=== PATIENT | male | born 1995 | race Caucasian/White ===

== ENCOUNTER 2016-11-02 07:21 | Inpatient (IN) | payer BC, OTHER ==
[~2016-11-02] VITALS: Ht 190.5 cm; Wt 86.2 kg
--- NOTE | 2016-11-02 10:45 | NUR ---
PREADMISSION NOTE Preadmission assessment done in Intake for 21 year old male, admission for substance use. Alert and oriented, no visible sweating or tremors, gait stable. Vital signs blood pressure 156/103, pulse 74, oxygen saturation 99 percent, temp 96.3. NKA other than "cats", No known food allergies. Denies history of seizures. No home medications. History of asthma and HTN. SUBSTANCE USE HISTORY 1. Heroin, 1-2 grams per day, length of use 5 months, date of last use 10/31/16, amount used one fifth of a gram. 2. Marijuana, inhalation, 2 grams per week, length of time 10 years, last use 1 week ago, amount 1 gram. Denies use of other substances or prescription medications. Denies history of Hep C or HIV. RN to complete admission when pt arrives in unit.
--- NOTE | 2016-11-02 11:30 | NUR ---
ADMISSION NOTE 21 year old male admitted heroin substance use. Alert and oriented, no visible sweating or tremors, gait stable. NKA , No known food allergies. Denies history of seizures. No home medications. History of asthma and HTN. Skin and body check completed, skin intact. Admitted to room 316. Vital signs on admission with blood pressure 156/103, pulse 74, oxygen saturation 99 percent, temp 96.3. Dr. Felix notified of elevated blood pressure. Pt is primary source of information, speech coherent. Pt denies being on home medication. Pt refuses PNA vaccine stating he is afraid of needles. Pt is full code, regular diet, on fall precautions. States he lives with his mother. His motivation to get sober is to be able to be in his sons life. Smokes one pack of cigarettes per day. Reports cervical and low back pain, nasal drainage, chills. Denies history of Hep C or HIV. REHAB HISTORY States he was in inpatient detox about 1.5 to 2 years ago but did not stay sober as he did not go on for treatment after discharge. He states he wants to go into a treatment center upon discharge. SUBSTANCE USE HISTORY 1. Heroin, 1-2 grams per day, length of use 5 months, date of last use 10/31/16, amount used one fifth of a gram. 2. Marijuana, inhalation, 2 grams per week, length of time 10 years, last use 1 week ago, amount 1 gram. Unit orientation given, bed in low position and locked, side rails up x 2, call light within reach. Will continued to monitor.
[2016-11-02 12:46] VITALS: BP 116/83
[2016-11-02 12:49] LABS: *AMPHETAMINE, URINE NEGATIVE (NEGATIVE); *BARBITURATE, URINE NEGATIVE (NEGATIVE); *CANNABINOID, URINE NEGATIVE (NEGATIVE); *COCCAINE, URINE NEGATIVE (NEGATIVE); *OPIATE, URINE NEGATIVE (NEGATIVE); *PHENCYCLIDINE SCREEN,URINE NEGATIVE (NEGATIVE)
[2016-11-02 16:00] VITALS: BP 112/63
[2016-11-02 16:16] LABS: BASOPHILS % (AUTO) 0.7 % (0.0-2.0); EOSINOPHILS # (AUTO) 0.1 K/uL (0.0-0.7); EOSINOPHILS % (AUTO) 2.2 % (0.0-7.0); HEMATOCRIT 46.8 % (40-50); HEMOGLOBIN 15.8 G/DL (14.0-18.0); LYMPHOCYTES # (AUTO) 1.6 K/UL (0.8-4.8); LYMPHOCYTES % (AUTO) 24.9 % (20.5-74.5); MEAN CORPUSCULAR HEMOGLOBIN 28.2 UUG (27.0-31.0); MEAN CORPUSCULAR HGB CONC 34 g/dL (32.0-37.0); MEAN CORPUSCULAR VOLUME 83.9 FL (82.0-92.0); MONOCYTES # (AUTO) 0.7 K/UL (0.1-1.30); MONOCYTES % (AUTO) 11.3 % (0-11); NEUTROPHILS % (AUTO) 60.9 % (31.5-64.5); PLATELET COUNT (AUTO) 241 K/UL (150-450); RED BLOOD CELL COUNT(AUTO) 5.58 MIL/UL (4.7-6.1); WHITE BLOOD COUNT (AUTO) 6.4 K/UL (4.0-11.2)
[2016-11-02 16:20] LABS: ALANINE AMINOTRANSFERASE 20 U/L (16-63); ALKALINE PHOSPHATASE 62 U/L (50-136); ASPARTATE AMINOTRANSFERASE 15 U/L (15-37); BILIRUBIN,TOTAL 0.4 mg/dL (0.2-1.0); CARBON DIOXIDE 30 mmol/L (21-32); CHLORIDE 104 mmol/L (98-107); CREATININE 1.4 mg/dL (0.6-1.3); GLUCOSE 109 mg/dL (74-106); POTASSIUM 4.1 mmol/L (3.5-5.1); TOTAL PROTEIN, SERUM 7.5 g/dL (6.4-8.2); UREA NITROGEN, BLOOD 10 mg/dL (7-18)
[2016-11-02 16:22] LABS: ETHANOL < 3 MG/DL (0-0)
--- NOTE | 2016-11-02 19:09 | NUR ---
END OF SHIFT NOTE Pt received Subutex 4 mg at 1300 scheduled dose. COW score 4 at 1650. Continues on Subutex taper. Pt continues to have chills, appears drowsy, has stuffy nose. No tremors, adequate appetite. Report given to night RN. Call light in reach, bed in low position and locked, fall precautions in place, safety measures in place.
[2016-11-02 20:00] VITALS: BP 148/75
--- NOTE | 2016-11-02 20:00 | NUR ---
START OF SHIFT NOTE RECEIVED REPORT FROM DAY SHIFT NURSE. PATIENT IS A 21 YEAR OLD MALE, ADMITTED FOR OPIATE DEPENDENCE. PATIENT IS ON HIS FIRST DAY OF HIS 5 DAY SUBUTEX TAPER. PATIENT REPORTS SEIZURE HISTORY. UPON ADMISSION, PATIENT IS USING HEROIN 1-2 GRAMS DAILY FOR 5 MONTHS AND MARIJUANA 2 GRAMS PER WEEK FOR 10 YEARS. SKIN INTACT. PATIENT DID NOT REQUIRE ANY PRN MEDICATION. LAST COWS 4. PATIENT IN HIS ROOM, RESTING. PATIENT REPORTS ANXIETY, CHILLS, COLD SWEATS NO N/V, ABDOMINAL CRAMPING AND NECK/BACK PAIN 07/22. ON FALL/SEIZURE PRECAUTION. SAFETY MEASURES IN PLACE. CALL LIGHT IN REACH. WILL CONTINUE TO MONITOR.
--- NOTE | 2016-11-02 21:11 | NUR ---
PRN ROBAXIN AND BENTYL ADMINISTRATION PATIENT C/O NECK/BACK PAIN AND ABDOMINAL CRAMPING. PRN ROBAXIN AND BENTYL GIVEN. WILL MONITOR FOR EFFECTIVENESS
--- NOTE | 2016-11-02 22:11 | NUR ---
PRN ELVIRA RE-ASSESSMENT PATIENT STATES GIOVANY AND KEEGAN IS HELPFUL. HE FEELS MUCH BETTER . NO PAIN AT THIS TIME
[2016-11-03] VITALS (7 sets, daily range): BP systolic 104–132; BP diastolic 58–84
--- NOTE | 2016-11-03 07:30 | NUR ---
END OF SHIFT NOTE PATIENT IS A 21 YEAR OLD MALE, ADMITTED FOR OPIATE DEPENDENCE. PATIENT IS ON 5 DAY SUBUTEX TAPER, TOLERATED WELL AND NO ADVERSE REACTION. PATIENT REPORTS SEIZURE HISTORY. SKIN INTACT. PATIENT REPORTED ANXIETY, CHILLS, COLD SWEATS NO N/V, ABDOMINAL CRAMPING AND NECK/BACK PAIN 07/22. PRN BENTYL AND ROBAXIN GIVEN. ON FALL/SEIZURE PRECAUTION. SAFETY MEASURES IN PLACE. CALL LIGHT IN REACH. WILL CONTINUE TO MONITOR. SLEPT 8 HOURS. FLUID INTAKE 1,000 ML. VOIDED X 1. BM X 1. LAST COWS 2.
--- NOTE | 2016-11-03 08:00 | NUR ---
START OF SHIFT NOTE 21 year old male admitted for Heroin substance abuse. Hx of asthma and HTN. On 5 day Subutex taper started 11/02/16. Received report from night RN. Last COW 2. Received PRN Bentyl and Robaxin last night. 0800 patient rounds, Pt alert and oriented. No nausea or tremors or chills, vital signs stable. Bed in low position and locked, side rails up x 2, call taylor within reach. Safety measures in place. Will continue to monitor.
[2016-11-03 08:10] LABS: HEPATITIS B SURFACE AG Negative (Negative)
--- NOTE | 2016-11-03 13:54 | NUR ---
PRN MEDICATION ADMINISTRATION Pt complaint of joint and muscle pain 6/10 and chills. Given Motrin and Robaxin.
--- NOTE | 2016-11-03 14:54 | NUR ---
PRN REASSESSMENT Joint and muscle aches now 3/, denies chills.
--- NOTE | 2016-11-03 19:00 | NUR ---
END OF SHIFT NOTE 21 year old male admitted for Heroin substance abuse. Hx of asthma and HTN. On 5 day Subutex taper started 11/02/16. WILLIS 9 at 1324, received additional scheduled subutex dose per Dr. Felix. WILLIS 4 at 1530, received scheduled dose of subutex. Report given to night RN. Bed in low position and locked, side rails up x 2, call taylor within reach. Safety measures in place.
--- NOTE | 2016-11-03 19:00 | NUR ---
START OF SHIFT NOTE: Patient is 21 year old male admitted to [facility] on 11/02/2016 for Opioid and Marijuana dependence continue 5 Day Subutex Taper since 11/02/2016. Patient tolerated well without ASE. Patient remains compliant with treatment, medications, and Diet regime. Patient reports NKA, is on Full Code Regular Diet, is on Fall and Seizures Precautions. Patient reports PMH: Asthma, HTN. Patient denies History of Seizures. Patient reports Substance use: 1. "Heroin via IV 1 - 2 grams every day last 5 months". "Last used 1/5 gram on 10/31/2016". 2. "Marijuana 2 gram every day since 2006". "Last used 1 gram one week ago". Patient reports recent hospitalization/Treatment History: "2 years ago was in inpatient detox for 5-6 days". Patient can't recalled place. Upon endorsement by day shift nurse, patient is alert and oriented x4. VS WNL. Patient reports pain now: "0/10". COWS 5. The patient reported the following symptoms of withdrawal: anxiety, agitation, nervousness, stomach cramps, diaphoresis, restless legs, and fatigue. Patient denies SI/HI. Upon initial assessment, patient's Respirations unlabored and even. Patient denies SOB and chest pain. Lungs Sounds are clear bilaterally. Bowel Sounds active in all x4 quadrants. Abdomen is soft and non-tender. PERRLA, brisk capillary refill, timber sizer equal and strong. Skin is intact, warm and dry to touch. Patient has multiple lesions around chest area due to skin picking. Encourage fluids as tolerated. Encourage to attend activities groups. All needs met. PRN Robaxin 750 mg 1 tab PO for myalgia and PRN Motrin 600 mg 1 tab PO for pain administrated to patient during day shift were effective. Safety measures on place. Call light within reach, bed in lowest position and locked, padded rails up bilaterally rails up bilaterally. Patient endorsed by day shift nurse. Report received. Will continue to monitor closely.
--- NOTE | 2016-11-03 21:58 | NUR ---
PRN BENADRYL 50 MG 1 CAP PO ADMINISTRATION Patient c/o insomnia. PRN Benadryl 50 mg 1 capsule PO administrated with full glass of water as ordered. Patient tolerated well. All needs met. Safety measures on place. Call light within reach, bed in lowest position and locked, padded rails up bilaterally rails up bilaterally. Will continue to monitor closely.
--- NOTE | 2016-11-03 22:58 | NUR ---
RE-ASSESSMENT Patient is sleeping. Respirations even and unlabored. RR:14. PRN Benadryl 50 mg 1 capsule PO administrated to patient @ 2158 for insomnia was effective. All needs met. Safety measures on place. Call light within reach, bed in lowest position and locked, padded rails up bilaterally rails up bilaterally. Will continue to monitor closely.
[2016-11-04] VITALS: BP 113/71
[2016-11-04 04:00] VITALS: BP 117/61
--- NOTE | 2016-11-04 07:14 | NUR ---
END OF SHIFT NOTE: Patient is 21 year old male admitted to [facility] on 11/02/2016 for Opioid and Marijuana dependence, continue 5 Day Subutex Taper since 11/03/2016. Patient tolerated well without ASE. Patient remains compliant with treatment, medications, and Diet regime. Patient reports NKA, is on Full Code Regular Diet, is on Fall and Seizures Precautions. PMH: Anxiety; History of withdrawal-induced seizures and accidental intoxication induced overdose requiring resuscitation; Chronic tobacco use; Opioid use disorder; Sedative hypnotic use disorder. Patient reports Substance use: 1. "Heroin via smoke inhalation 1 - 2 grams every day last 5 months". "Last used 1/5 gram on 10/31/2016". 2. "Marijuana 2 gram every day since 2006". "Last used 1 gram one week ago". Last COWS 5 @0400. The patient reported the following symptoms of withdrawal: anxiety, agitation, nervousness, nose running, diaphoresis, restless legs, and fatigue. VS @ 0400: T: 97.9, BP: 117/61, HR:68, RR:18, RA O2Sat: 100%. Pain level: "0/10". Respirations are unlabored and even. Skin is warm and dry to touch. Skin is warm and dry to touch. Patient has multiple lesions around chest area due to skin picking. Encouraged fluid intake as tolerated. PRN Benadryl 50 mg 1 cap PO administrated @2158 for insomnia was effective. Patient slept 7 hours, intake 2,598 ml, voided x5. All needs met. Safety measures on place. Call light within reach, bed in lowest position and locked, padded rails up bilaterally. Patient endorsed to day shift nurse.
--- NOTE | 2016-11-04 07:41 | NUR ---
START OF SHIFT NOTE: Received report from slot shift manager nurse. Patient is 21 year old male admitted to [facility] on 11/02/2016 for Opioid and Marijuana dependence. Pt is on a 5 day Subutex taper. Tolerating well. Pt is alert and oriented X4. Color good, skin warm and dry. Respirations even and unlabored. Resting in bed. Safety precautions observed. Call light within reach. Will continue to monitor.
[2016-11-04 08:28] VITALS: BP 117/61
--- NOTE | 2016-11-04 09:38 | NUR ---
VSS COWS 9 c/o chills, diffuse body aches and anxiety
--- NOTE | 2016-11-04 09:45 | NUR ---
MOM 30cc po prn given fro constipation
[2016-11-04 13:26] VITALS: BP 112/70
--- NOTE | 2016-11-04 15:00 | NUR ---
VSS COWS 10 c/o muscle aches, anxiety and chills. Toradol 30mg IM prn given. Miralax given prn. No results from [facility].
[2016-11-04 16:11] VITALS: BP 126/74
--- NOTE | 2016-11-04 19:13 | NUR ---
START OF SHIFT NOTE: Patient is 21 year old male admitted to [facility] on 11/02/2016 for Opioid and Marijuana dependence continue 5 Day Subutex Taper since 11/02/2016. Patient tolerated well without ASE. Patient remains compliant with treatment, medications, and Diet regime. Patient reports NKA, is on Full Code Regular Diet, is on Fall and Seizures Precautions. Patient reports PMH: Asthma, HTN. Patient denies History of Seizures. Patient reports Substance use: 1. "Heroin via IV 1 - 2 grams every day last 5 months". "Last used 1/5 gram on 10/31/2016". 2. "Marijuana 2 gram every day since 2006". "Last used 1 gram one week ago". Patient reports recent hospitalization/Treatment History: "2 years ago was in inpatient detox for 5-6 days". Patient can't recalled place. Upon endorsement by day shift nurse, patient is alert and oriented x4. VS WNL. Patient reports pain now: "0/10". COWS 7. The patient reported the following symptoms of withdrawal: anxiety, agitation, nervousness, diaphoresis, restless legs, and fatigue. Patient denies SI/HI. Upon initial assessment, patient's Respirations unlabored and even. Patient denies SOB and chest pain. Lungs Sounds are clear bilaterally. Bowel Sounds active in all x4 quadrants. Abdomen is soft and non-tender. PERRLA, brisk capillary refill, mail agent equal and strong. Skin is intact, warm and dry to touch. Patient has multiple lesions around chest area due to skin picking. Encourage fluids as tolerated. Encourage to attend activities groups. All needs met. Safety measures on place. Call light within reach, bed in lowest position and locked, padded rails up bilaterally rails up bilaterally. Patient endorsed by day shift nurse. Report received. Will continue to monitor closely.
--- NOTE | 2016-11-04 19:13 | NUR ---
END OF SHIFT NOTE: Report given to it field technician nurse . Patient is 21 year old male admitted to [facility] on 11/02/2016 for Opioid and Marijuana dependence. Pt is on a 5 day Subutex taper. Tolerating well. Pt is alert and oriented X4. Color good, skin warm and dry. Respirations even and unlabored. Vital signs have remained stable throughout shift. MOM 30cc po prn given for constipation @ 0940. Toradol 30mg IM prn given. Miralax given prn @1500. No results from MOM. Last COWS 10 @ 1500. Safety precautions observed. Call light within reach.
[2016-11-04 20:00] VITALS: BP 138/70
--- NOTE | 2016-11-04 20:57 | NUR ---
PRN TRAZODONE 50 MG 1 TAB PO AND PRN TORADOL INJ 30 MG/1ML IM ADMINISTRATION Patient c/o insomnia and generalized body aches "910", and asked aid. PRN Trazodone 50 mg 1 tab PO for insomnia with full glass of water, and PRN Toradol Inj. 30 MG/1ML IM to Right Upper Deltoid Muscle for pain administrated as ordered. All needs met. Safety measures on place. All needs met. Call light within reach, bed in lowest position and locked, padded rails up bilaterally. Will continue to monitor closely.
--- NOTE | 2016-11-04 21:57 | NUR ---
RE ASSESSMENT Patient is sleeping. RR 15. PRN Trazodone 50 mg 1 tab PO for insomnia and PRN Toradol Inj. 30 MG/1ML IM for pain were effective. Safety measures on place. Call light within reach, bed in lowest position and locked, padded rails up bilaterally rails up bilaterally. Will continue to monitor closely.
[2016-11-05] VITALS: BP 133/74
[2016-11-05 04:00] VITALS: BP 128/78
--- NOTE | 2016-11-05 06:50 | NUR ---
END OF SHIFT NOTE: Patient is 21 year old male admitted to [facility] on 11/02/2016 for Opioid and Marijuana dependence, continue 5 Day Subutex Taper since 11/03/2016. Patient tolerated well without ASE. Patient remains compliant with treatment, medications, and Diet regime. Patient reports NKA, is on Full Code Regular Diet, is on Fall and Seizures Precautions. PMH: Anxiety; History of withdrawal-induced seizures and accidental intoxication induced overdose requiring resuscitation; Chronic tobacco use; Opioid use disorder; Sedative hypnotic use disorder. Patient reports Substance use: "Heroin via smoke inhalation 1 - 2 grams every day last 5 months". "Last used 1/5 gram on 10/31/2016"; "Marijuana 2 gram every day since 2006". "Last used 1 gram one week ago". Last COWS 4 @0400. The patient reported the following symptoms of withdrawal: anxiety, agitation, nervousness, diaphoresis, restless legs, and fatigue. VS @ 0400: T: 98.3, BP: 128/78, HR: 75, RR:14, RA O2Sat: 100%. Pain level: "0/10". Respirations are unlabored and even. Skin is warm and dry to touch. Skin is warm and dry to touch. Patient has multiple lesions around chest area due to skin picking. Encouraged fluid intake as tolerated. PRN Trazodone 50 mg 1 tab PO for insomnia@2056 and PRN Toradol Inj. 30 MG/1ML IM for pain @2056were effective. Patient slept 8 hours, intake 1,710 ml, voided x4. All needs met. Safety measures on place. Call light within reach, bed in lowest position and locked, padded rails up bilaterally. Patient endorsed to day shift nurse.
--- NOTE | 2016-11-05 07:45 | NUR ---
START OF SHIFT NOTE Received report from night nurse, 21 year old male admitted for Opioid and Marijuana dependence. Pt is on a 5 day Subutex taper. Pt reported PMH of Asthma, HTN. Per endorsement received PRN Trazodone, Toradol effective per night nurse, last COWS-4, Slept for 8 hours. Pt received in bed awake, alert and oriented x4, Skin intact warm and dry to touch. Pt educated regarding plan of care for the day with good verbal understanding. Safety measures in place, call light kept with in reach, will continue to monitor.
[2016-11-05 08:00] VITALS: BP 103/65
[2016-11-05 08:16] LABS: CREATININE 1.2 mg/dL (0.6-1.3); POTASSIUM 4.6 mmol/L (3.5-5.1)
[2016-11-05 12:00] VITALS: BP 122/68
--- NOTE | 2016-11-05 14:25 | NUR ---
Therapist prompted client about group times. Client stated he will attend all groups today.
[2016-11-05 16:00] VITALS: BP 132/78
--- NOTE | 2016-11-05 18:31 | NUR ---
PRN ZOFRAN Pt reported nausea and emesis x1, PRN Zofran 4mg SL administered as ordered. Will cont to monitor for effectiveness.
--- NOTE | 2016-11-05 19:00 | NUR ---
ZOFRAN REASSESSMENT pt reported medication effective,no nausea no emesis reported by the pt.
--- NOTE | 2016-11-05 19:18 | NUR ---
START OF SHIFT NOTE: Patient is 21 year old male admitted to [facility] on 11/02/2016 for Opioid and Marijuana dependence, continue 5 Day Subutex Taper since 11/03/2016. Patient tolerated well without ASE. Patient remains compliant with treatment, medications, and diet regime. Patient reports NKA, is on Full Code Regular Diet, is on Fall and Seizures Precautions. PMH: Anxiety; History of withdrawal-induced seizures and accidental intoxication induced overdose requiring resuscitation; Chronic tobacco use; Opioid use disorder; Sedative hypnotic use disorder. Patient reports Substance use: Heroin via smoke inhalation 1 - 2 grams every day last 5 months. Last used 1/5 gram on 10/31/2016; Marijuana 2 gram every day since 2006. Last used 1 gram one week ago. Upon endorsement patient is in the room alert and oriented. X4. Patient recently used wheelchair for unsteady gait during day shift, but patient noted walking in the hallway with steady gait. COWS 9. The patient reported the following symptoms of withdrawal: anxiety, agitation, nervousness, diaphoresis, restless legs, and fatigue. VS: T: 98.4, BP: 140/75, HR: 79, RR:19, RA O2Sat: 99%. Pain level: "0/10". Respirations are unlabored and even. Skin is warm and dry to touch. Skin is warm and dry to touch. Patient denies SI/HI. Respirations unlabored and even. Patient denies SOB and chest pain. Lungs Sounds are clear bilaterally. Bowel Sounds active in all x4 quadrants. Abdomen is soft and non-tender. PERRLA, brisk capillary refill, store worker equal and strong. Skin is intact, warm and dry to touch. Encourage fluids as tolerated. Patient attended activities groups during day. All needs met. Safety measures on place. Call light within reach, bed in lowest position and locked, padded rails up bilaterally. Patient endorsed by day shift nurse. Report received. Will continue to monitor closely.
--- NOTE | 2016-11-05 19:18 | NUR ---
END OF SHIFT NOTE Pt presented with nausea x1 episode of emesis. Pt was given PRN Zofran 4 mg SL effective. Pt wanted to use the wheel chair because of unsteady gait, but pt noted walking in the hallway with steady gait. Vital sings WNL. Last COWS was 8. Encourage Po fluids as tolerated. All needs attended. Pt endorsed to night nurse in stable condition.
[2016-11-05 20:00] VITALS: BP 140/75
--- NOTE | 2016-11-05 20:52 | NUR ---
PRN TRAZODONE 50 MG 1 TAB PO ADMINISTRATION Patient c/o insomnia and asked aid. PRN Trazodone 50 mg 1 tab PO administrated as ordered with full glass of water. All needs met. Safety measures on place. Call light within reach, bed in lowest position and locked, padded rails up bilaterally rails up bilaterally. Patient endorsed by day shift nurse. Will continue to monitor closely.
--- NOTE | 2016-11-05 21:52 | NUR ---
RE ASSESSMENT Patient is sleeping. RR 15. PRN Trazodone 50 mg 1 tab PO was effective. All needs met. Safety measures on place. Call light within reach, bed in lowest position and locked, padded rails up bilaterally rails up bilaterally. Patient endorsed by day shift nurse. Will continue to monitor closely. Addendum: 11/06/16 at 0414 by RONIT ISBELL RN error: Patient not endorsed by day shift nurse.
[2016-11-06] VITALS: BP 136/72
--- NOTE | 2016-11-06 04:00 | NUR ---
VS REFUSED AND COWS/CIWA DEFERRED Patient refused to be woken up for 0400 VS. COWS/CIWA deferred d/t patient sleeping to assess while patient is awake. Safety measures on place by hospital policy: Call light within reach; Bed in lowest position and locked; side rails up x2. Will continue to monitor.
--- NOTE | 2016-11-06 07:06 | NUR ---
END OF SHIFT NOTE: Patient is 21 year old male admitted to [facility] on 11/02/2016 for Opioid and Marijuana dependence, continue 5 Day Subutex Taper since 11/03/2016. Patient tolerated well without ASE. Patient remains compliant with treatment, medications, and diet regime. Patient reports NKA, is on Full Code Regular Diet, is on Fall and Seizures Precautions. PMH: Anxiety; History of withdrawal-induced seizures and accidental intoxication induced overdose requiring resuscitation; Chronic tobacco use; Opioid use disorder; Sedative hypnotic use disorder. Patient reports Substance use: Heroin via smoke inhalation 1 - 2 grams every day last 5 months. Last used 1/5 gram on 10/31/2016; Marijuana 2 gram every day since 2006. Last used 1 gram one week ago. Patient refused to be woken up for 0400 VS. Last COWS 6 @0000. VS @ 0000: T: 98.0, BP: 136/72, HR: 71, RR:16, RA O2Sat: 98%. Pain level: "0/10". Respirations are unlabored and even. Skin is warm and dry to touch. Skin is warm and dry to touch. Patient has multiple lesions around chest area due to skin picking. Encouraged fluid intake as tolerated. PRN Trazodone 50 mg 1 tab PO for insomnia@2051 was effective. Patient slept 5 hours 30 minutes, intake 1,223 ml, voided x2. All needs met. Safety measures on place. Call light within reach, bed in lowest position and locked, padded rails up bilaterally. Patient endorsed to day shift nurse.
--- NOTE | 2016-11-06 07:49 | NUR ---
START OF SHIFT NOTE Received report from night nurse, 21 year old male admitted for Opioid and Marijuana dependence. Pt cont on a 5 day Subutex taper. Pt reported PMH of Asthma, HTN. Per endorsement received PRN Trazodone effective per night nurse, last COWS-6, Slept for 12 hours. Pt received in bed awake, alert and oriented x4, Skin intact warm and dry to touch. Pt educated regarding plan of care for the day with good verbal understanding. Safety measures in place, call light kept with in reach, Will continue to monitor.
[2016-11-06 08:00] VITALS: BP 120/65
[2016-11-06 12:00] VITALS: BP 137/60
[2016-11-06 16:00] VITALS: BP 139/55
--- NOTE | 2016-11-06 19:08 | NUR ---
END OF SHIFT NOTE Pt completed his Subutex taper tolerated well. Pt set for discharge in AM. Vital signs remained WNL. Pt refused his scheduled Clonidine offered x3 risk and benefits explained, pt verbalized understanding but still refused. Last COWS score was 6. Pt attended groups and activities. Pt witness self inducing vomiting and refusing to take anything for nausea offered x3 risk and benefits explained with good verbal understanding. Encouraged Po fluids as tolerated. All needs attended. Pt endorsed to night nurse in stable condition.
[2016-11-06] MEDS ORDERED: HYDR-3895 PO (19:14)
[2016-11-06] MEDS ORDERED: BACL20TA PO (19:14)
[2016-11-06] MEDS ORDERED: DICY20TA28 PO (19:14)
[2016-11-06] MEDS ORDERED: NAPR500T3 PO (19:14)
[2016-11-06] MEDS ORDERED: FAMO20TA8 PO (19:14)
[2016-11-06] MEDS ORDERED: TRAZ-144 PO (19:14)
[2016-11-06] MEDS ORDERED: GABA-534 PO (19:14)
--- NOTE | 2016-11-06 19:39 | NUR ---
Start of shift report Patient is a 21 year old male admitted to [facility] on 11-02-16 for opiate detox. He has medical history of asthma, and hypertension. Patient has no seizure history is a full code, on a regular diet, and has no known allergies. Patient is on fall and seizure precautions. Last COWS 6 at 1600. Patient has completed his detox. He has had episodes of emesis and has a history of self induced vomiting. Patient currently active on unit, going to smoke on patio, and has no complaints at change of shift. Report received from AM nurse.
[2016-11-06 20:00] VITALS: BP 157/78
--- NOTE | 2016-11-06 21:04 | NUR ---
PRN MEDICATION ZOFRAN 4MG IM ADMINISTERED TO RIGHT DELTOID AT 2104 FOR TWO EPISODES OF EMESIS LIQUID NON DIGESTED FOOD. EFFECT PENDING.
--- NOTE | 2016-11-06 21:34 | NUR ---
REASSESSMENT OF PATIENT REASSESSMENT OF PATIENT 30 MINUTES POST IM INJECTION OF 4MG ZOFRAN ADMINISTERED FOR EMESIS. NO FURTHER EPISODES OF EMESIS OBSERVED OR REPORTED. GOOD EFFECT NOTED.
[2016-11-07] VITALS: BP 136/76
--- NOTE | 2016-11-07 | NUR ---
COWS DEFERRED COWS DEFERRED AT 0000 PATIENT ASLEEP, RESTING COMFORTABLY IN BED EYES CLOSED, BREATHING EVEN AND UNLABORED. VITAL SIGNS STABLE.
[2016-11-07 04:00] VITALS: BP 128/56
--- NOTE | 2016-11-07 04:00 | NUR ---
COWS deferred COWS deferred at 0400. Patient asleep.
--- NOTE | 2016-11-07 06:47 | NUR ---
END OF SHIFT NOTE Patient is a 21 year old male admitted to [facility] on 11-02-16 for opiate detox. He has medical history of asthma, and hypertension. Patient has no seizure history is a full code, on a regular diet, and has no known allergies. Patient is on fall and seizure precautions. VS at 2000 BP 157/78, P 84, R 18, T 98.1, SPO2 99% on RA. COWS 8. PRN Zofran administered 4mg IM at 2104 for emesis with good effect noted. VS at 0000 BP 136/76, P 80, R 18, T 98.0, SPO2 98% on RA. COWS deferred. Patient VS at 0400 BP 128/56, P 64, R 18, SPO2 96% on RA, T 98.6. COWS deferred. Intake 1500 ml Void x 2 Emesis x 1 BM x 1. Slept total of 5 hours. Safety measures in place. 2 side rails up for safety. Call light within reach. Report to AM nurse.
--- NOTE | 2016-11-07 07:10 | NUR ---
Start of shift note SBAR report rcv'd. Pt was admitted for opiate dependence. Pt has a PMHx of asthma and HTN. Pt denies any allergies to any medications. Pt states that he feels ready for discharge. Pt has no complaints at this time. WIll continue to monitor pt.
[2016-11-07 08:00] VITALS: BP 120/74
[2016-11-07 08:33] VITALS: BP 120/74
--- NOTE | 2016-11-07 09:30 | NUR ---
Discharge note Pt was admitted for opiate dependence. Pt states that he feels ready for discharge. VS are WNL, COWS of 4, LBM 11/07/16. Denies any SI. Verbalized his understanding of the discharge instructions. All needs addressed at this time. Pt discharge instructions, prescriptions and all belongings returned to pt. Pt ID band removed, ambulated off of unit with [facility], left facility via [facility] for [facility].
== END 2016-11-07 09:36 | disposition other institution (70) | DRG 895 ==
LOC: SRC 10:25
PROVIDERS: ADMIT Internal Medicine; ATTEND Internal Medicine
PROC: HZ2ZZZZ Detoxification Services for Substance Abuse Treatment (ICD-10-PCS; principal; 2016-11-02)
PROC: HZ41ZZZ Group Counseling for Substance Abuse Treatment, Behavioral (ICD-10-PCS; 2016-11-04)
PROC: HZ31ZZZ Individual Counseling for Substance Abuse Treatment, Behavioral (ICD-10-PCS; 2016-11-05)
DX: F11.23 Opioid dependence with withdrawal (principal); E87.3 Alkalosis; N17.9 Acute kidney failure, unspecified; F13.21 Sedative, hypnotic or anxiolytic dependence, in remission; F17.210 Nicotine dependence, cigarettes, uncomplicated; F12.10 Cannabis abuse, uncomplicated; E86.0 Dehydration; F41.9 Anxiety disorder, unspecified; Z91.89 Other specified personal risk factors, not elsewhere classified; K59.03 Drug induced constipation; I15.9 Secondary hypertension, unspecified; Z63.8 Other specified problems related to primary support group; Z91.19 Patient's noncompliance with other medical treatment and regimen
CPT/HCPCS: 36415; 70030-TC; 80307; 83735; 85025; 86580; 86592; 86705; 86803; 87340; 87806; A4663; G0480; J1885; J2405; Q0162; Q0163